=== PATIENT | female | born 1970 | race Hispanic/Latino ===

== ENCOUNTER 2017-10-01 15:03 | Outpatient (CLI) | payer OTHER | END 2017-10-01 15:04 | disposition home or self-care (01) | LOC: BICRAD 15:03 | DX: M77.31 Calcaneal spur, right foot (principal) ==

== ENCOUNTER 2022-09-27 09:05 | Outpatient (CLI) | payer OTHER | END 2022-09-27 09:06 | disposition home or self-care (01) | LOC: BICRAD 09:05 | PROVIDERS: ATTEND Family Medicine | DX: R76.12 Nonspecific reaction to cell mediated immunity measurement of gamma interferon antigen response without active tuberculosis (principal) | CPT/HCPCS: 71046 ==